=== PATIENT | female | born 1940 | race Caucasian/White ===

== ENCOUNTER 2022-04-17 19:20 | Inpatient (IN) | payer MEDICARE, OTHER ==
[~2022-04-17] VITALS: Ht 152.4 cm; Wt 83.1 kg
[2022-04-17 19:57] LABS: HEMOGLOBIN 13.7 gm/dl (12.3-15.3); RED BLOOD COUNT 4.86 M/UL (4.00-5.10); WHITE BLOOD COUNT 13.2 K/UL (4.5-11.0)
[2022-04-17] MEDS ORDERED: BENAZEPRIL HCL10 MG PO (23:49)
[2022-04-17] MEDS ORDERED: VITAMIN D21250 MCG PO (23:49)
[2022-04-17] MEDS ORDERED: GLUCOPHAGE 500500 MG PO (23:52)
[2022-04-17] MEDS ORDERED: BUMETANIDE2 MG PO (23:53)
[2022-04-17] MEDS ORDERED: K-TAB ER20 MEQ PO (23:53)
[2022-04-17] MEDS ORDERED: ATENOLOL25 MG PO (23:54)
[2022-04-17] MEDS ORDERED: OMEPRAZOLE20 MG PO (23:54)
[2022-04-17] MEDS ORDERED: VITAMIN C1000 MG PO (23:55)
[2022-04-17] MEDS ORDERED: VALIUM5 MG PO (23:56)
[2022-04-18 06:33] LABS: HEMOGLOBIN 13.7 gm/dl (12.3-15.3); RED BLOOD COUNT 4.87 M/UL (4.00-5.10); WHITE BLOOD COUNT 11.1 K/UL (4.5-11.0)
[2022-04-19 02:07] LABS: HEMOGLOBIN 13.1 gm/dl (12.3-15.3); RED BLOOD COUNT 4.67 M/UL (4.00-5.10); WHITE BLOOD COUNT 10.5 K/UL (4.5-11.0)
--- NOTE | 2022-04-19 18:01 | NUR ---
DR. RODRIGUEZ CALLED WITH NEW ORDER FOR AMIO IV TO RUN AT 0.5 MG/MIN IV FOR ANOTHER 24 HOURS
[2022-04-19 20:42] LABS: HEMOGLOBIN 13.7 gm/dl (12.3-15.3); RED BLOOD COUNT 4.82 M/UL (4.00-5.10)
[2022-04-20 03:02] LABS: HEMOGLOBIN 13.1 gm/dl (12.3-15.3); RED BLOOD COUNT 4.6 M/UL (4.00-5.10); WHITE BLOOD COUNT 9.8 K/UL (4.5-11.0)
[2022-04-20 07:11] LABS: HEMOGLOBIN A1C 7.5 % (4.8-5.6)
[2022-04-20] MEDS ORDERED: FUROSEMIDE40 MG PO (10:45)
[2022-04-20] MEDS ORDERED: AMIODARONE HCL200 MG PO ×2 (10:45)
[2022-04-20] MEDS ORDERED: LOPRESSOR 50 MG50 MG PO (10:45)
== END 2022-04-20 12:20 | disposition home or self-care (01) | DRG 291 ==
LOC: ER1 19:20 → PROG CARE 20:49 → CDU 20:49 → PROG CARE 23:42
PROVIDERS: Family Medicine; Internal Medicine; ADMIT Internal Medicine
PROC: B24BZZZ Ultrasonography of Heart with Aorta (ICD-10-PCS; principal; 2022-04-18)
DX: I13.0 Hypertensive heart and chronic kidney disease with heart failure and stage 1 through stage 4 chronic kidney disease, or unspecified chronic kidney disease (principal); J96.01 Acute respiratory failure with hypoxia; Z20.822 Contact with and (suspected) exposure to COVID-19; Z66 Do not resuscitate; I50.33 Acute on chronic diastolic (congestive) heart failure; N17.9 Acute kidney failure, unspecified; I48.91 Unspecified atrial fibrillation; E66.9 Obesity, unspecified; E11.40 Type 2 diabetes mellitus with diabetic neuropathy, unspecified; E87.6 Hypokalemia; F41.9 Anxiety disorder, unspecified; E86.0 Dehydration; I08.1 Rheumatic disorders of both mitral and tricuspid valves; N18.30 Chronic kidney disease, stage 3 unspecified; E11.22 Type 2 diabetes mellitus with diabetic chronic kidney disease; I20.9 Angina pectoris, unspecified; Z79.4 Long term (current) use of insulin; Z90.710 Acquired absence of both cervix and uterus; Z90.49 Acquired absence of other specified parts of digestive tract; Z82.3 Family history of stroke; I25.2 Old myocardial infarction; Z68.35 Body mass index [BMI] 35.0-35.9, adult
CPT/HCPCS: ECHO; 36415; 36600; 70450; 71045; 80048; 80053; 81001; 82140; 82550; 82553; 82803; 82962; 83036; 83735; 83880; 84100; 84439; 84443; 84484; 84550; 85025; 85027; 85610; 85730; 87086; 93005; 93306; 94760; 96374; 96375; 99285; J1160; J1650; J1940; U0002

== ENCOUNTER 2022-05-04 15:14 | Emergency (ER) | payer MEDICARE, OTHER ==
[~2022-05-04 15:14] MED LIST: AMIODARONE HCL200 MG PO; ATENOLOL25 MG PO; BENAZEPRIL HCL10 MG PO; BUMETANIDE2 MG PO; FUROSEMIDE40 MG PO; GLUCOPHAGE 500500 MG PO; K-TAB ER20 MEQ PO; LOPRESSOR 50 MG50 MG PO; OMEPRAZOLE20 MG PO; VALIUM5 MG PO; VITAMIN C1000 MG PO; VITAMIN D21250 MCG PO
== END 2022-05-04 16:58 | disposition home or self-care (01) ==
LOC: ER1 15:14
DX: N39.0 Urinary tract infection, site not specified (principal); I48.91 Unspecified atrial fibrillation; I11.0 Hypertensive heart disease with heart failure; I50.9 Heart failure, unspecified; E11.9 Type 2 diabetes mellitus without complications; Z88.0 Allergy status to penicillin; Z88.8 Allergy status to other drugs, medicaments and biological substances
CPT/HCPCS: 81001; 87086; 99283